=== PATIENT | male | born 1975 | race African-American/Black ===

== ENCOUNTER 2019-07-03 20:42 | Emergency (ER) | payer OTHER ==
[~2019-07-03] VITALS: Ht 177.8 cm; Wt 93.0 kg
[2019-07-03] MEDS: IOHEXOL 300 MG/ML 75 ML VIAL. IV ONE (21:16)
[2019-07-03] MEDS: FAMOTIDINE 20 MG/2 ML VIAL IVP ONE (21:24)
[2019-07-03] MEDS: KETOROLAC 15 MG/ML VIAL. IVP ONE (21:24)
[2019-07-03] MEDS: IV NORMAL SALINE 1,000ML 1,000 ML IV ONE (21:24)
[2019-07-03] MEDS: METOCLOPRAMIDE HCL 10 MG/2 ML VIAL. IVP ONE (21:40)
--- NOTE | 2019-07-03 21:42 | RAD ---
CT abdomen pelvis with contrast dated 07/03/2019. No comparison available. Clinical data indication: Right lower quadrant pain and swelling. TECHNIQUE: Contiguous axial imaging the M pelvis performed after the intravenous demonstration of 75 cc Omnipaque 300. One or more of the following individualized dose reduction techniques were utilized for this examination: 1. Automated exposure control 2. Adjustment of the mA and/or kV according to patient size 3. Use of iterative reconstruction technique. FINDINGS: Limited images of lung bases are clear. Minimal linear scar or atelectasis in the right middle lobe. Heart size within normal limits. No pleural or pericardial effusion. Liver, spleen, pancreas, adrenal glands, gallbladder and kidneys are unremarkable. No hydronephrosis. Unopacified GI tract normal in caliber and contour. No focal bowel wall thickening. No inflammatory stranding in the mesentery. The appendix is not clearly identified. No inflammatory changes in the right lower quadrant. No ascites or lymphadenopathy. Abdominal aorta normal in caliber. Images of pelvis show nondistended urinary bladder. Prostate gland normal in size. No free pelvic fluid or pelvic lymphadenopathy. Bone windows show no acute findings. IMPRESSION: 1. No acute abnormality of abdomen or pelvis. 2. The appendix is not clearly identified. No inflammatory changes in the right lower quadrant. Electronically signed by: Rjaesh Carpenter MD (07/03/2019 9:39 PM) [id number]
[2019-07-03 21:43] LABS: BASO # 0.1 x10^3/uL (0.0-0.2); BASO % 1 % (0-3); EOS # 0.2 x10^3/uL (0.0-0.7); EOS % 4 % (0-3); HEMATOCRIT 42.7 % (39.0-53.0); HEMOGLOBIN 14.7 g/dL (13.0-17.5); LYMPH # 2.1 x10^3/uL (1.0-4.8); LYMPH % 37 % (24-48); MEAN CORPUSCULAR HEMOGLOBIN 29 pg (25-35); MEAN CORPUSCULAR HGB CONC 35 g/dL (31-37); MEAN CORPUSCULAR VOLUME 85 fL (79-100); MONO # 0.6 x10^3/uL (0.0-1.1); MONO % 10 % (0-9); NEUT # 2.8 x10^3uL (1.8-7.7); NEUT % 48 % (31-73); PLATELET COUNT 196 x10^3/uL (140-400); RED BLOOD COUNT 5.06 x10^6/uL (4.30-5.70); RED CELL DISTRIBUTION WIDTH 13.3 % (11.5-14.5); WHITE BLOOD COUNT 5.8 x10^3/uL (4.0-11.0)
[2019-07-03 21:49] LABS: CREATININE 0.9 mg/dL (0.7-1.3); GFR 110.4
[2019-07-03 21:53] LABS: BACTERIA,URINE 0 /HPF (0-FEW); BILIRUBIN,URINE NEG (NEG); CLARITY,URINE CLEAR; COLOR,URINE YELLOW; GLUCOSE,URINE NEG (NEG); NITRITE,URINE NEG (NEG); RBC,URINE 0 /HPF (0-2); SQUAMOUS EPITHELIAL CELL,UR OCC /LPF; UROBILINOGEN,URINE 0.2 mg/dL (0.2 mg/dL); WBC,URINE OCC /HPF (0-4)
[2019-07-03 21:55] LABS: ALBUMIN 4.1 g/dL (3.4-5.0); ALBUMIN/GLOBULIN RATIO 1.1 (1.0-1.7); MAGNESIUM 2.1 mg/dL (1.8-2.4); TOTAL BILIRUBIN 0.4 mg/dL (0.2-1.0)
--- NOTE | 2019-07-03 21:55 | PHYS DOC ---
Past History Past Medical History: Anxiety Past Surgical History: No Surgical History Smoking: Non-smoker Alcohol Use: None Drug Use: None Adult General Chief Complaint Chief Complaint: ABDOMINAL PAIN HPI HPI 44-year-old male presents with 2 day history of right lower quadrant abdominal pain. Patient reports pain is intermittent in nature. Patient reports more recently has become constant. Denies fever or chills. Denies known trauma. Denies known sick contacts. Denies travel outside the [place]. Patient denies vomiting, constipation, or diarrhea. Denies back pain, dysuria, or hematuria Review of Systems Review of Systems Constitutional: Denies fever or chills Eyes: Denies redness or eye pain HENT: Denies nasal congestion or sore throat Respiratory: Denies cough or shortness of breath Cardiovascular: Denies chest pain or palpitations GI: Reports abdominal pain and nausea; denies diarrhea, constipation, or vomiting : Denies dysuria or hematuria Musculoskeletal: Denies back pain or joint pain Integument: Denies rash or skin lesions Neurologic: Denies headache, focal weakness or sensory changes Complete systems were reviewed and found to be within normal limits, except as documented in this note. Current Medications Current Medications Current Medications Medications (Trade) Dose Ordered Sig/Robel Start Time Stop Time Status Last Admin Dose Admin Famotidine (Pepcid Vial) 20 mg 1X ONCE 07/03/19 21:00 07/03/19 21:01 DC 07/03/19 21:24 20 MG Iohexol (Omnipaque 300 Mg/ml) 75 ml 1X ONCE 07/03/19 21:00 07/03/19 21:01 DC 07/03/19 21:16 75 ML Ketorolac Tromethamine (Toradol 15mg Vial) 15 mg 1X ONCE 07/03/19 21:00 07/03/19 21:03 DC 07/03/19 21:24 15 MG Metoclopramide HCl (Reglan Vial) 10 mg 1X ONCE 07/03/19 21:30 07/03/19 21:32 DC 07/03/19 21:40 10 MG Sodium Chloride 1,000 ml @ 1,000 mls/hr 1X ONCE 07/03/19 21:00 07/03/19 21:59 07/03/19 21:24 1,000 MLS/HR Allergies Allergies Allergies Coded Allergies Type Severity Reaction Last Updated Verified No Known Drug Allergies 07/03/19 No Physical Exam Physical Exam Constitutional: Well developed, well nourished, no acute distress, non-toxic appearance HENT: Normocephalic, atraumatic, oropharynx moist Eyes: Conjunctiva normal, no discharge Neck: Normal range of motion, no tenderness, supple Cardiovascular: Heart rate normal, regular rhythm Lungs & Thorax: Bilateral breath sounds clear to auscultation, no wheezing Abdomen: Soft, RLQ tenderness, no distention Skin: Warm, dry, no erythema, no rash Back: No tenderness, no CVA tenderness Extremities: No tenderness, ROM intact, no edema Neurologic: Alert and oriented X 3, no focal deficits noted Psychologic: Affect normal, judgment normal Current Patient Data Vital Signs Vital Signs Date Time Temp Pulse Resp B/P (MAP) Pulse Ox O2 Delivery O2 Flow Rate FiO2 07/03/19 20:42 98.2 64 18 135/99 (111) 100 Room Air Lab Results Laboratory Tests Test 07/03/19 21:10 White Blood Count 5.8 x10^3/uL (4.0-11.0) Red Blood Count 5.06 x10^6/uL (4.30-5.70) Hemoglobin 14.7 g/dL (13.0-17.5) Hematocrit 42.7 % (39.0-53.0) Mean Corpuscular Volume 85 fL (79-100) Mean Corpuscular Hemoglobin 29 pg (25-35) Mean Corpuscular Hemoglobin Concent 35 g/dL (31-37) Red Cell Distribution Width 13.3 % (11.5-14.5) Platelet Count 196 x10^3/uL (140-400) Neutrophils (%) (Auto) 48 % (31-73) Lymphocytes (%) (Auto) 37 % (24-48) Monocytes (%) (Auto) 10 % (0-9) H Eosinophils (%) (Auto) 4 % (0-3) H Basophils (%) (Auto) 1 % (0-3) Neutrophils # (Auto) 2.8 x10^3uL (1.8-7.7) Lymphocytes # (Auto) 2.1 x10^3/uL (1.0-4.8) Monocytes # (Auto) 0.6 x10^3/uL (0.0-1.1) Eosinophils # (Auto) 0.2 x10^3/uL (0.0-0.7) Basophils # (Auto) 0.1 x10^3/uL (0.0-0.2) EKG EKG [] Radiology/Procedures Radiology/Procedures PROCEDURE: CT ABD PELV W/ IV CONTRST ONLY CT abdomen pelvis with contrast dated 07/03/2019. No comparison available. Clinical data indication: Right lower quadrant pain and swelling. TECHNIQUE: Contiguous axial imaging the M pelvis performed after the intravenous demonstration of 75 cc Omnipaque 300. One or more of the following individualized dose reduction techniques were utilized for this examination: 1. Automated exposure control 2. Adjustment of the mA and/or kV according to patient size 3. Use of iterative reconstruction technique. FINDINGS: Limited images of lung bases are clear. Minimal linear scar or atelectasis in the right middle lobe. Heart size within normal limits. No pleural or pericardial effusion. Liver, spleen, pancreas, adrenal glands, gallbladder and kidneys are unremarkable. No hydronephrosis. Unopacified GI tract normal in caliber and contour. No focal bowel wall thickening. No inflammatory stranding in the mesentery. The appendix is not clearly identified. No inflammatory changes in the right lower quadrant. No ascites or lymphadenopathy. Abdominal aorta normal in caliber. Images of pelvis show nondistended urinary bladder. Prostate gland normal in size. No free pelvic fluid or pelvic lymphadenopathy. Bone windows show no acute findings. IMPRESSION: 1. No acute abnormality of abdomen or pelvis. 2. The appendix is not clearly identified. No inflammatory changes in the right lower quadrant. Electronically signed by: Rajesh Carpenter MD (07/03/2019 9:39 PM) [id number] Course & Med Decision Making Course & Med Decision Making Pertinent Labs and Imaging studies reviewed. (See chart for details) Patient presents with RLQ pain with has been intermittent for last 2 days. Reports some associated nausea. Tenderness on palpation. Pain/nausea addressed. IVF hydration given. Labs obtained and posted to chart. CT abd/pelvis without acute process. Patient stable for discharge with outpatient follow-up with PCP/GI. GI referral provided. Discussed findings and plan with patient, who acknowledges understandi ng and agreement. Berna Disclaimer Dragbettye Disclaimer This electronic medical record was generated, in whole or in part, using a voice recognition dictation system. Departure Departure: Impression: Primary Impression: Abdominal pain Disposition: HOME, SELF-CARE Condition: STABLE Referrals: JERRY COLIN (PCP) JULIEN ELDRIDGE MD Patient Instructions: Abdominal Pain (Nonspecific) Scripts Hyoscyamine Sulfate (LEVSIN-SL) 0.125 Mg Tab.subl 0.125 MG SL Q4-6HRS PRN for PAIN, #14 TAB Prov: RAJESH POSADAS DO 07/03/19 Problem Qualifiers Primary Impression: Abdominal pain Abdominal location: right lower quadrant Qualified Codes: R10.31 - Right lower quadrant pain RAJESH POSADAS DO Jul 03, 2019 21:55
[2019-07-03] MEDS ORDERED: HYOS0.1265 SL (22:20)
[2019-07-03 22:21] VITALS: BP 127/78
== END 2019-07-03 22:25 | disposition home or self-care (01) ==
LOC: ER 20:42
DX: R10.31 Right lower quadrant pain (principal); R11.0 Nausea; F41.9 Anxiety disorder, unspecified
CPT/HCPCS: 36415; 74177; 80053; 81001; 83690; 83735; 85025; 85610; 85730; 96374; 96375; 99285; J1885; J2765; J3490; Q9967; J7030

== ENCOUNTER → 2019-08-19 | Outpatient (CLI) | payer OTHER ==
[~2019-08-19] MED LIST: HYOS0.1265 SL; METH4TAB2 PO
--- NOTE | 2019-08-19 09:59 | RAD ---
EXAMINATION: SMALL BOWEL SERIES 08/19/2019 9:00 AM HISTORY: Left lower quadrant pain COMPARISON: CT abdomen and pelvis 07/03/2019 TECHNIQUE: An overhead manager report image was obtained. The patient drank barium and overhead images were taken at 20 minute intervals until barium had reached the colon. No fluoroscopic images obtained or compression of the bowel performed. FINDINGS: The stomach and small bowel are grossly normal in morphology on overhead images. Contrast reaches the colon by 40 minutes. No evidence of bowel obstruction. IMPRESSION: Grossly normal appearance of stomach and small bowel. Small bowel transit time 40 minutes. Electronically signed by: Marleny Key MD (08/19/2019 9:55 AM) [id number]
== END | disposition home or self-care (01) ==
LOC: CT 08:43
PROVIDERS: ATTEND Internal Medicine Gastroenterology
DX: R10.31 Right lower quadrant pain (principal)
CPT/HCPCS: 74250

== ENCOUNTER 2020-01-01 16:42 | Emergency (ER) | payer OTHER ==
[~2020-01-01] VITALS: Ht 177.8 cm; Wt 93.0 kg
[~2020-01-01 16:42] MED LIST changes: -METH4TAB2 PO
[2020-01-01] MEDS ORDERED: DEXAMETHASONE SOD PHOS 10 MG/ML VIAL. IM ONE (17:30)
[2020-01-01] MEDS ORDERED: diazePAM 5 MG TABLET. PO ONE (17:30)
[2020-01-01] MEDS ORDERED: METH4TAB2 PO (17:31)
--- NOTE | 2020-01-01 17:34 | PHYS DOC ---
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 He developed neck pain earlier this week with his progressively gotten worse. He has had neck pain in the past but previously w ent to a chiropractor. Due to the pandemic he has not been able to see his chiropractor. He states the pain shoots into his arm. Denies any other issues Review of Systems Review of Systems General: Denies fever, chills, sweats, fatigue Eyes: Denies drainage, blurred vision, eye redness HENT: Denies rhinorrhea, sore throat, earache Respiratory: Denies cough, shortness of breath, wheezing Cardiac: Denies edema, palpitations, chest pain GI: Denies abdominal pain, Nausea, vomiting MSK: Denies back pain. Reports neck pain Skin: Denies rash, jaundice Neuro: Denies headache, dizziness Psychiatric: Denies SI/HI Allergies Allergies Allergies Coded Allergies Type Severity Reaction Last Updated Verified No Known Drug Allergies 07/03/19 No Physical Exam Physical Exam General: Awake, alert, NAD. Well Nourished, well hydrated. Cooperative HEENT: Atraumatic, EOMI, PERRL, airway patent, moist oral mucosa Neck: Supple, trachea midline, tenderness along the lateral right neck with spasms Respiratory: CTA bilaterally, normal effort, no wheezing/crackles CV: RRR, no murmur, cap refill <2 GI: Soft, nondistended, nontender, no masses MSK: No obvious deformities Skin: Warm, dry, intact Neuro: A&O x3, speech NL, sensory and motor grossly intact, no focal deficits Psych: Normal affect, normal mood, not suicidal or homicidal EKG EKG [] Radiology/Procedures Radiology/Procedures [] Course & Med Decision Making Course & Med Decision Making Pertinent Labs and Imaging studies reviewed. (See chart for details) Patient is a 44-year-old male who presents to the emergency room complaining of neck pain that radiates into his arm. He has known cervical spine issues. He recently had several visits for this. This is an exacerbation of pain. He is requesting steroids. Patient will be given Decadron and Valium here in the emergency room. He does not have any concerning symptoms at this time. Patient's test results and vitals while in the ED were fully reviewed and discussed with the patient. Patient is stable and at this time does not need admission to the hospital. We have discussed strict return precautions and the importance of following up with their Primary Care Physician. Patient stated un derstanding and was given an opportunity to ask any questions. Patient is in agreement with plan. Dragon Disclaimer Dragon Disclaimer This electronic medical record was generated, in whole or in part, using a voice recognition dictation system. Departure Departure: Impression: Primary Impression: Cervical radiculopathy Disposition: HOME/RESIDENCE PRIOR TO ADM Condition: STABLE Referrals: JERRY COLIN (PCP) Patient Instructions: Cervical Radiculopathy Scripts Methylprednisolone (MEDROL) 4 Mg Tab.ds.pk 1 PKG PO UD for inflammation, #1 PKG Prov: CARMEL WHITESIDE MD 01/01/20 CARMEL WHITESIDE MD Jan 01, 2020 17:34
[2020-01-01 18:04] VITALS: BP 139/74
== END 2020-01-01 18:06 | disposition home or self-care (01) ==
LOC: ER 16:42
DX: M54.12 Radiculopathy, cervical region (principal); F41.9 Anxiety disorder, unspecified
CPT/HCPCS: 96372; 99283; J1100

== ENCOUNTER → 2020-03-19 | Outpatient (CLI) | payer OTHER ==
[~2020-03-19] MED LIST changes: +METH4TAB2 PO
--- NOTE | 2020-03-19 17:28 | RAD ---
PQRS Compliance Statement: One or more of the following individualized dose reduction techniques were utilized for this examinat ion: 1. Automated exposure control 2. Adjustment of the mA and/or kV according to patient size 3. Use of iterative reconstruction technique CT MAXILLOFACIAL WITHOUT CONTRAST 03/19/2020 10:36 AM Indication: Hypertrophy of nasal turbinates COMPARISON: None available TECHNIQUE: Multiple axial CT images of the maxillofacial structures were obtained without intravenous contrast. Coronal and sagittal reformats provided. FINDINGS: Ventricles are normal in appearance. No hydrocephalus. Visualized portions of the brain parenchyma an d posterior fossa appear normal. Globes are spherical and contour. Extraocular muscles are intact. No intraconal or extraconal soft tissue mass. Oral cavity is normal in appearance. Parapharyngeal fat i s preserved. Nasopharynx appears normal including the fossa Rosenmuller. Hims Coder space appears int act. Nasal septum is minimally deviated to the right. Nasal turbinates are normal in appearance. Osti omeatal units appear patent. Skull base is intact. No significant mucosal thickening involving the ma xillary sinuses, ethmoid air cells are sphenoid sinuses. Frontal sinuses are well aerated. No suspici ous calvarial abnormality. IMPRESSION: Nasal turbinates are normal in appearance. Minimal deviation of nasal septum to the right. Ostiomeata l units are widely patent. No mucosal thickening identified involving the paranasal sinuses. Electronically signed by: Siobhan Samaniego MD (03/19/2020 5:26 PM) [id number]
== END ==
LOC: CT 10:23
DX: J34.3 Hypertrophy of nasal turbinates (principal)
CPT/HCPCS: 70486